=== PATIENT | female | born 1955 | race Caucasian/White ===

== ENCOUNTER 2021-08-06 06:40 | Observation (INO) | payer MEDICARE ==
[2021-08-02 08:57] LABS: BASOPHILS % 0.3 % (0.0-1.0); EOSINOPHILS # (AUTO) 0.2 (0.0-0.4); EOSINOPHILS % 2.2 % (0.0-6.0); HEMATOCRIT 44.4 % (34.2-44.1); HEMOGLOBIN 13.6 g/dL (12.0-16.0); LYMPHOCYTES # (AUTO) 2.7 (1.0-3.2); LYMPHOCYTES % 39.9 % (18.0-39.1); MEAN CORPUSCULAR HGB CONC 30.6 g/dL (31-35); MEAN CORPUSCULAR VOLUME 88.3 fL (81-99); MONOCYTES # (AUTO) 0.5 (0.2-0.8); MONOCYTES % 7.9 % (4.4-11.3); NEUTROPHILS # (AUTO) 3.3 (2.1-6.9); NEUTROPHILS % 49.6 % (38.7-80.0); PLATELET COUNT 291 x10e3/uL (140-360); RED BLOOD COUNT 5.03 x10e6/uL (3.6-5.1); RED CELL DISTRIBUTION WIDTH 21.6 % (11.7-14.4)
[2021-08-02 09:32] LABS: ALBUMIN 3.9 g/dL (3.5-5.0); ANION GAP 16.9 mmol/L (8-16); CALCIUM 9.3 mg/dL (8.4-10.2); CREATININE, SERUM 0.76 mg/dL (0.57-1.11); POTASSIUM 3.9 mmol/L (3.5-5.1)
[~2021-08-06] VITALS: Ht 160 cm; Wt 92.5 kg
[~2021-08-06 06:40] MED LIST: ATORVASTATIN CA20 MG PO; CRANBERRY200 MG PO; FEROSUL325 MG PO; LEVOTHYROXINE88 MCG PO; OMEPRAZOLE40 MG PO; SODIUM CHLORIDE 0.9% 50ML 100 ML ONE; VITAMIN A10000 UNIT PO; VITAMIN D310 MCG PO
[2021-08-06] MEDS ORDERED: ESTROGENS CONJUGATED VAGINAL CR 45 GM TUBE PV ONE (07:09)
[2021-08-06] MEDS ORDERED: LIDOCAINE 2% /EPINEPHRINE 20 ML SDV INJ ONE (07:11)
[2021-08-06] MEDS ORDERED: DIPHENHYDRAMINE HCL 25 MG CAP PO PRN (10:00)
[2021-08-06] MEDS ORDERED: BISACODYL 5 MG TAB EC PO PRN (10:00)
[2021-08-06] MEDS ORDERED: PROMETHAZINE HCL (IM) 25 MG/ML VIAL IM PRN (10:00)
[2021-08-06] MEDS ORDERED: KETOROLAC TROMETHAMINE 30 MG/ML VIAL IM PRN (10:00)
[2021-08-06] MEDS ORDERED: FENTANYL CITRATE/PF 100MCG/2 ML INJ ONE ×2 (10:35→12:24)
[2021-08-06] MEDS ORDERED: MIDAZOLAM HCL 2 MG/2 ML VIAL ONE (12:24)
[2021-08-06 12:30] VITALS: BP 132/71
[2021-08-06 12:57] VITALS: BP 132/71
[2021-08-06] MEDS ORDERED: GLYCOPYRROLATE INJ 0.2 MG/ML VIAL ONE (13:44)
[2021-08-06] MEDS ORDERED: KETOROLAC TROMETHAMINE 30 MG/ML VIAL ONE (13:44)
[2021-08-06] MEDS ORDERED: ROCURONIUM BROMIDE 10 MG/ML 5ML VIAL IV ONE (13:44)
[2021-08-06] MEDS ORDERED: LIDOCAINE HCL 2% LOCAL INJ 5 ML SDV VIAL INJ ONE (13:44)
[2021-08-06] MEDS ORDERED: SEVOFLURANE INHAL SOLN 250 ML PEN BTL ONE (13:44)
[2021-08-06] MEDS ORDERED: NEOSTIGMINE 1 MG/ML 10ML VIAL ONE (13:44)
[2021-08-06] MEDS ORDERED: POVIDONE IODINE 0.05% 0.05 % ML PO ONE (13:44)
[2021-08-06] MEDS ORDERED: DEXAMETHASONE SOD PHOS INJ 4 MG/ML SDV ONE (13:44)
[2021-08-06] MEDS ORDERED: PROPOFOL IV EMULSION 10 MG/ML 20 ML VIAL ONE (13:44)
[2021-08-06] MEDS ORDERED: ONDANSETRON HCL INJ 2MG/ML 2ML 2 MG/ML VIAL ONE (13:44)
[2021-08-06] MEDS: HYDROCODONE/APAP 10MG-325MG TAB PO PRN ×3 (14:06→23:10)
[2021-08-06 16:26] VITALS: BP 128/64
[2021-08-06 20:20] VITALS: BP 128/64
[2021-08-06 20:50] VITALS: BP 132/60
[2021-08-07 00:30] VITALS: BP 160/55
[2021-08-07 04:00] VITALS: BP 136/66
[2021-08-07] MEDS: HYDROCODONE/APAP 10MG-325MG TAB PO PRN ×3 (04:00→12:08)
[2021-08-07 05:32] LABS: BASOPHILS % 0.2 % (0.0-1.0); EOSINOPHILS % 0.2 % (0.0-6.0); HEMOGLOBIN 11.8 g/dL (12.0-16.0); LYMPHOCYTES # (AUTO) 2.7 (1.0-3.2); LYMPHOCYTES % 21.2 % (18.0-39.1); MEAN CORPUSCULAR HGB CONC 30.3 g/dL (31-35); MEAN CORPUSCULAR VOLUME 89.2 fL (81-99); MONOCYTES # (AUTO) 0.7 (0.2-0.8); MONOCYTES % 5.8 % (4.4-11.3); NEUTROPHILS # (AUTO) 9.2 (2.1-6.9); NEUTROPHILS % 72.2 % (38.7-80.0); PLATELET COUNT 271 x10e3/uL (140-360); RED BLOOD COUNT 4.37 x10e6/uL (3.6-5.1); RED CELL DISTRIBUTION WIDTH 20.3 % (11.7-14.4)
[2021-08-07 07:40] VITALS: BP 100/55
[2021-08-07 08:00] VITALS: BP 100/55
[2021-08-07 11:41] VITALS: BP 99/34
== END 2021-08-07 14:45 | disposition home or self-care (01) ==
LOC: OR 06:40 → PACU V 09:57 → INTOOBSV 09:57 → MED/SURG 12:04
PROVIDERS: ADMIT Obstetrics & Gynecology; ATTEND Obstetrics & Gynecology
DX: N81.89 Other female genital prolapse (principal); E03.9 Hypothyroidism, unspecified; E11.9 Type 2 diabetes mellitus without complications; K21.9 Gastro-esophageal reflux disease without esophagitis; Z20.822 Contact with and (suspected) exposure to COVID-19; Z01.818 Encounter for other preprocedural examination
CPT/HCPCS: 36415 ×2; 57260; 57282; 58260; 71046; 80053; 85025 ×2; 86850; 86900; 88305; 93005; G0378 ×2; J0690; J1100; J1885; J2001 ×2; J2250; J2405; J2704; J2710; J3010; U0002; 88307

== ENCOUNTER → 2024-08-26 | Outpatient (REF) | payer MEDICARE ==
[~2024-08-26] MED LIST changes: +KEFLEX125 MG/5 M PO; +LEVOTHYROXINE137 MCG PO; -SODIUM CHLORIDE 0.9% 50ML 100 ML ONE; +SOLIFENACIN SUCC5 MG PO
== END ==
LOC: DX 09:24
PROVIDERS: ATTEND Nurse Practitioner Family
DX: Z13.820 Encounter for screening for osteoporosis (principal)
CPT/HCPCS: 77080